=== PATIENT | male | born 1955 | race Caucasian/White ===

== ENCOUNTER → 2019-01-07 | Outpatient (CLI) | payer OTHER ==
[2019-01-07 06:55] LABS: POTASSIUM 3.5 mmol/L (3.5-5.1)
== END ==
LOC: M.LAB 06:25
PROVIDERS: Student in an Organized Health Care Education/Training Program
DX: E11.9 Type 2 diabetes mellitus without complications (principal)

== ENCOUNTER 2021-01-28 08:33 | Emergency (ER) | payer OTHER ==
[~2021-01-28] VITALS: Ht 182.9 cm; Wt 120.2 kg
[2021-01-28] MEDS ORDERED: METFORMIN HCL500 M3 (08:52)
[2021-01-28] MEDS ORDERED: LIPITOR10 MG PO (08:53)
[2021-01-28] MEDS ORDERED: FLURBIPROFEN100 MG PO (08:53)
[2021-01-28] MEDS ORDERED: NORCO 10-325 T1 EACH (08:53)
[2021-01-28] MEDS ORDERED: BENICAR HCT 401 EAC1 PO (08:54)
[2021-01-28] MEDS ORDERED: VITAMIN D325 MC3 PO (08:54)
[2021-01-28] MEDS ORDERED: TUMERIC (08:55)
[2021-01-28 09:25] LABS: ABSOLUTE LYMPHOCYTES 0.9 thou/uL (0.8-5.3); ABSOLUTE MONOCYTES 0.5 thou/uL (0.0-1.2); ABSOLUTE NEUTROPHILS 7.6 thou/uL (1.6-8.1); BASOPHILS 0.5 %; HEMATOCRIT 40.4 % (42.0-52.0); HEMOGLOBIN 13.5 gm/dL (14.0-18.0); LYMPHOCYTES 10.2 %; MCH 27.1 pg (26.0-34.0); MCHC 33.4 g/dL (28.0-37.0); MCV 81.1 fL (80.0-100.0); MONOCYTES 5.7 %; MPV 7.9 fl. (7.2-11.1); NUCLEATED RBCS 0 /100WBC; PLATELET COUNT* 200 thou/uL (150-400); POLYS 83.6 %; RBC 4.98 mil/uL (4.50-6.00); RDW-CV 14.9 % (10.5-14.5); WBC 9.1 thou/uL (4.0-11.0)
[2021-01-28 09:29] LABS: CALCIUM 8.9 mg/dL (8.5-10.1); CREATININE 1.2 mg/dL (0.6-1.3); POTASSIUM 3.1 mmol/L (3.5-5.1)
[2021-01-28 09:34] LABS: ALBUMIN 3.9 g/dL (3.4-5.0); TOTAL PROTEIN 7.5 g/dL (6.4-8.2)
[2021-01-28 10:18] LABS: MAGNESIUM 1.9 mg/dL (1.8-2.4)
[2021-01-28 10:54] LABS: URINE BILIRUBIN NEGATIVE (Negative); URINE BLOOD TRACE (Negative); URINE CLARITY CLEAR; URINE COLOR YELLOW; URINE GLUCOSE-RANDOM TRACE (Negative); URINE KETONES 1+ (Negative); URINE LEUKOCYTES-REFLEX NEGATIVE (Negative); URINE NITRITE-REFLEX NEGATIVE (Negative); URINE PROTEIN NEGATIVE (Negative); URINE UROBILINOGEN 0.2 E.U./dl (0.2-1.0)
[2021-01-28] MEDS ORDERED: HYDROCODON-ACE1 EAC7 PO (12:01)
[2021-01-28] MEDS ORDERED: PHENERGAN 25 MG25 MG PO (12:01)
[2021-01-28 12:33] VITALS: BP 129/79
--- NOTE | 2021-01-28 14:49 | EKG ---
[place] [address] ELECTROCARDIOGRAM REPORT Name: LISA MILIAN Room: [facility]#: [id number] Admission: 01/28/21 Attend Phys: Discharge: 01/28/21 Date of : 51 Date of Service: 01/28/21912 Report #: [id number] THIS REPORT FOR: //name// [facility] ED Test Date: 2021-01-28 Test Time: 09:13:00 Pat Name: LISA MILIAN Department: Room: Gender: Fitness Floor Attendant: [facility] : 1955 Requested By: Ulices Martinez Order Number: [id number] MD: Juan Jose Casiano Measurements Intervals [place] Rate: 69 P: 57 DC: 165 QRS: -13 QRSD: 111 T: 23 QT: 472 QTc: 506 Interpretive Statements Sinus rhythm RSR' in V1 or V2, right VCD or RVH Prolonged QT interval No previous ECG available for comparison Electronically Signed On 01-28-2021 14:49:13 CDT by Juan Jose Casiano [email or web address] <ELECTRONICALLY SIGNED> By: Juan Jose Casiano MD, [facility] 01/28/21 1449 0913 2 Juan Jose Casiano MD, [facility] /EPI
== END 2021-01-28 12:34 | disposition home or self-care (01) ==
LOC: M.ERS 08:33
PROVIDERS: Emergency Medicine Emergency Medical Services
DX: R10.84 Generalized abdominal pain (principal); R11.2 Nausea with vomiting, unspecified; I10 Essential (primary) hypertension; E78.5 Hyperlipidemia, unspecified; E11.9 Type 2 diabetes mellitus without complications; Z79.899 Other long term (current) drug therapy; Z79.82 Long term (current) use of aspirin

== ENCOUNTER → 2021-04-07 | Outpatient (CLI) | payer OTHER ==
[~2021-04-07] MED LIST: BENICAR HCT 401 EAC1 PO; FLURBIPROFEN100 MG PO; HYDROCODON-ACE1 EAC7 PO; LIPITOR10 MG PO; METFORMIN HCL500 M3; NORCO 10-325 T1 EACH; PHENERGAN 25 MG25 MG PO; TUMERIC; VITAMIN D325 MC3 PO
== END ==
LOC: M.ULTRA 08:51
PROVIDERS: ATTEND Internal Medicine Gastroenterology
DX: R16.2 Hepatomegaly with splenomegaly, not elsewhere classified (principal); R11.2 Nausea with vomiting, unspecified; R10.9 Unspecified abdominal pain

== ENCOUNTER → 2022-01-05 | Outpatient (CLI) | payer OTHER | LOC: M.NUC 06:55 | PROVIDERS: ATTEND Nurse Practitioner Family | DX: R11.2 Nausea with vomiting, unspecified (principal); R10.30 Lower abdominal pain, unspecified ==